=== PATIENT | female | born 1950 | race Caucasian/White ===

== ENCOUNTER 2018-12-18 08:25 | Inpatient (IN) ==
[2018-12-18] MEDS ORDERED: 0.9 % Sodium Chloride 1,000 ML IVC ONE (09:12)
--- NOTE | 2018-12-18 09:15 | Emergency Department Note ---
Disposition Clinical Impression: Cellulitis of right leg Disposition: Admitted As Inpatient Condition: Fair Referrals: Lionel Lord DO [Primary Care Provider] - Forms: ED Satisfaction Letter, Work/School Release Time of Disposition: 11:32 Fever HPI - General Chief Complaint: ED General Medical Stated Complaint: fever and weakness Time Seen by Provider: 12/18/18 09:07 Source: patient, family Mode of arrival: private vehicle Limitations: no limitations Nursing Notes Reviewed: Yes Vital Signs Reviewed: Yes - History of Present Illness Pt Subjective Complaint: fever Onset (ago): day(s) (Started yesterday) Maximum Temperature Reported: 101 F Time temperature last taken: 05:30 Temperature Source: oral Associated symptoms: Reports: denies other symptoms (Only complains of fever and feeling run down. No focal complaints.) Improves with: acetaminophen Worsens with: nothing Treatments prior to arrival fever: acetaminophen - Related Data Home Medications Medication Instructions Recorded Confirmed Amlodipine Besylate/Benazepril 1 cap PO DAILY 06/25/16 12/18/18 [Lotrel 5-40 mg Capsule] Atenolol [Tenormin] 25 mg PO DAILY 06/25/16 12/18/18 Atorvastatin Calcium [Lipitor] 20 mg PO DAILY 06/25/16 12/18/18 Cholecalciferol (Vitamin D3) 5,000 unit PO DAILY 06/25/16 12/18/18 [Dialyvite Vitamin D] Esomeprazole Magnesium [Nexium] 40 mg PO DAILY 06/25/16 12/18/18 Hydrocodone/Acetaminophen 1 each PO BID 06/25/16 12/18/18 [Hydrocodon-Acetaminophen 5-325] Insulin Glargine,Hum.rec.anlog 50 unit SQ DAILY 06/25/16 12/18/18 [Lantus Solostar] Pregabalin [Lyrica] 200 mg PO DAILY 06/25/16 12/18/18 SitaGLIPtin [Januvia] 100 mg PO DAILY 06/25/16 12/18/18 Venlafaxine XR (24 HR) [Effexor XR] 75 mg PO DAILY 06/25/16 12/18/18 Esomeprazole Magnesium [Nexium] 40 mg PO DAILY 12/18/18 12/18/18 Levothyroxine [Synthroid] 88 mcg PO DAILY 12/18/18 12/18/18 Metoprolol [Lopressor] 50 mg PO DAILY 12/18/18 12/18/18 SitaGLIPtin [Januvia] 100 mg PO DAILY 12/18/18 12/18/18 Allergies Allergy/AdvReac Type Severity Reaction Status Date / Time Iodinated Contrast- Oral and Allergy Anaphylaxis Verified 06/25/16 02:50 IV Dye All systems ED: reviewed and negative except as stated. Constitutional: Reports: fever, weakness. 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 Absent: scleral icterus, conjunctival injection - ENT ENT exam: normal exam, normal oropharynx, mucous membranes moist, TM's normal bilaterally, normal external ear exam - Neck Neck exam: Present: normal inspection, full ROM, trachea midline - Chest Chest inspection: Present: normal inspection, symmetric chest wall rise. Absent: tenderness - Respiratory Respiratory exam: Present: normal lung sounds bilaterally. Absent: respiratory distress, wheezes - Cardiovascular Cardiovascular exam: Present: regular rate, normal rhythm, normal heart sounds - Abdominal Exam Abdominal exam: Present: soft, Non-Tender, normal bowel sounds - Extremities Exam Extremities exam: Present: normal inspection. Absent: pedal edema - Neurological Exam Neurological exam: Present: alert, oriented X3 - Psychiatric Psychiatric exam: Present: normal affect, normal mood - Skin Skin exam: Present: warm, dry. Absent: rash Course Course Narrative: Patient presents with a fever. No focal complaints. No focal findings on examination. However she has a medical conditions including diabetes so we have to look carefully for the source of infection since no clear source is identified on exam. I will do a an infectious workup on the patient. Disposition will be based on diagnostic results and reevaluation. - Reevaluation(s) Reevaluation #1: White count shows 30,000 but the rest of the workup does not really show me a source of infection. However she did not need to be admitted to the hospital because of his elevated white count and weakness until we can see cultures and really know whether problem is. I talked with the hospitalist, Dr. Kessler, and he accepted the patient for admission. We will hold off on antibiotics until we find a source. Time: 11:10 Reevaluation #2: I went back into with the patient the family about the admission. Family dramatic tension to her right leg. There really was not much on the right leg when I did my initial examination but now looks like there is a cellulitis. There is some redness there and warm to the touch and a little bit tender. So perhaps this is a cellulitis. I went ahead and called Dr. Kessler back. We will start her on vancomycin and still admit her to the hospital for further evaluation. Time: 11:32 - Consultations Consultation #1: Dr. Kessler, hospitalist - I had 2 conversations with him and he is accepted patient for admission. Time: 11:32 Vital Signs Temperature 100.5 F H 12/18/18 08:29 Pulse Rate 91 12/18/18 08:29 Respiratory Rate 18 12/18/18 08:29 Blood Pressure 105/50 12/18/18 08:29 O2 Sat by Pulse Oximetry 95 12/18/18 08:29 Temperature 100.5 F H 12/18/18 08:29 Pulse Rate 75 12/18/18 11:02 Respiratory Rate 16 12/18/18 11:02 Blood Pressure 142/112 12/18/18 11:02 O2 Sat by Pulse Oximetry 98 12/18/18 11:02 Oxygen Delivery Oxygen Delivery Room Air Fever - Lab Data Lab results reviewed: Yes I reviewed the patient's lab results. Result diagrams: 12/18/18 09:59 12/18/18 09:59 Lab Results 12/18/18 12/18/18 12/18/18 Range/Units 09:59 09:59 09:59 WBC 30.4 H* (4.3-11.1) K/mcL RBC 4.06 (3.82-4.97) M/mcL Hgb 11.8 (11.5-15.4) g/dL Hct 36.5 (35.3-44.9) % MCV 89.9 (83.0-100.0) fL MCH 29.1 (28.0-33.3) pg MCHC 32.3 (31.6-35.5) g/dL RDW 15.4 H (11.5-14.5) % Plt Count 251 (140-400) K/mcL MPV 10.1 (9.4-12.4) fL Seg Neutrophils % 72.0 % Band Neutrophils % 20.0 H (0-4) % Lymphocytes % 2.0 % Monocytes % 4.0 % Blast Cells % 2.0 H (0) % Neutrophils # 28.0 H (1.6-8.9) K/mcL Lymphocytes # 0.6 (0.6-4.6) K/mcL Monocytes # 1.2 (0.0-1.3) K/mcL Toxic Granulation Present A (Not Present) Toxic Vacuolation Present A (Not Present) Platelet Estimate Normal (Normal) Sodium 135 L (136-145) mEq/L Potassium 4.4 (3.5-5.1) mEq/L Chloride 99 (98-107) mEq/L Carbon Dioxide 27 (23-29) mEq/L BUN 22 (8-23) mg/dL Creatinine 1.82 H (0.60-1.20) mg/dL Est GFR ( Amer) 33 L (> 60) Est GFR (Non-Af Amer) 28 L (> 60) BUN/Creatinine Ratio 12 (6-26) Glucose 128 H (70-105) mg/dL Calculated Osmolality 285 (280-300) Lactic Acid 1.2 (0.5-2.2) mmol/L Calcium 8.8 (8.6-10.3) mg/dL Urine Color (Yellow) Urine Clarity (Clear) Urine pH (5.0-8.0) pH Units Ur Specific [place] (1.010-1.025) Urine Protein (Neg-Trace) mg/dL Urine Glucose (UA) (Normal) mg/dL Urine Ketones (Negative) mg/dL Urine Blood (Negative) Urine Nitrite (Negative) Urine Bilirubin (Negative) Urine Urobilinogen (Normal) mg/dL Ur Leukocyte Esterase (Negative) Ur Culture Indicated? (NO) 12/18/18 Range/Units 10:28 WBC (4.3-11.1) K/mcL RBC (3.82-4.97) M/mcL Hgb (11.5-15.4) g/dL Hct (35.3-44.9) % MCV (83.0-100.0) fL MCH (28.0-33.3) pg MCHC (31.6-35.5) g/dL RDW (11.5-14.5) % Plt Count (140-400) K/mcL MPV (9.4-12.4) fL Seg Neutrophils % % Band Neutrophils % (0-4) % Lymphocytes % % Monocytes % % Blast Cells % (0) % Neutrophils # (1.6-8.9) K/mcL Lymphocytes # (0.6-4.6) K/mcL Monocytes # (0.0-1.3) K/mcL Toxic Granulation (Not Present) Toxic Vacuolation (Not Present) Platelet Estimate (Normal) Sodium (136-145) mEq/L Potassium (3.5-5.1) mEq/L Chloride (98-107) mEq/L Carbon Dioxide (23-29) mEq/L BUN (8-23) mg/dL Creatinine (0.60-1.20) mg/dL Est GFR ( Amer) (> 60) Est GFR (Non-Af Amer) (> 60) BUN/Creatinine Ratio (6-26) Glucose (70-105) mg/dL Calculated Osmolality (280-300) Lactic Acid (0.5-2.2) mmol/L Calcium (8.6-10.3) mg/dL Urine Color Yellow (Yellow) Urine Clarity Clear (Clear) Urine pH 5.5 (5.0-8.0) pH Units Ur Specific [place] 1.015 (1.010-1.025) Urine Protein Trace (Neg-Trace) mg/dL Urine Glucose (UA) Normal (Normal) mg/dL Urine Ketones Negative (Negative) mg/dL Urine Blood Negative (Negative) Urine Nitrite Negative (Negative) Urine Bilirubin Small H (Negative) Urine Urobilinogen Normal (Normal) mg/dL Ur Leukocyte Esterase Negative (Negative) Ur Culture Indicated? NO (NO)
[2018-12-18 10:21] LABS: Hematocrit 36.5 % (35.3-44.9); Hemoglobin 11.8 g/dL (11.5-15.4); Mean Corpuscular HGB Conc 32.3 g/dL (31.6-35.5); Mean Corpuscular Hemoglobin 29.1 pg (28.0-33.3); Mean Corpuscular Volume 89.9 fL (83.0-100.0); Mean Platelet Volume 10.1 fL (9.4-12.4); Platelet Count 251 K/mcL (140-400); Red Blood Count 4.06 M/mcL (3.82-4.97); Red Cell Distribution Width 15.4 % (11.5-14.5)
[2018-12-18 10:27] LABS: Calcium 8.8 mg/dL (8.6-10.3); Potassium 4.4 mEq/L (3.5-5.1)
[2018-12-18 10:36] LABS: Bilirubin,Urine Small (Negative); Blood,Urine Negative (Negative); Clarity,Urine Clear (Clear); Color,Urine Yellow (Yellow); Glucose,Urine (UA) Normal (Normal); Ketones,Urine Negative (Negative); Leukocyte Esterase,Urine Negative (Negative); Nitrite,Urine Negative (Negative); PH,Urine 5.5 pH Units (5.0-8.0); Protein,Urine Trace mg/dL (Neg-Trace); Specific Gravity,Urine 1.015 (1.010-1.025); Urobilinogen,Urine Normal (Normal)
[2018-12-18 10:42] LABS: Lymphocytes # 0.6 K/mcL (0.6-4.6); Monocytes # 1.2 K/mcL (0.0-1.3)
[2018-12-18 10:43] LABS: Platelet Estimate Normal (Normal); Toxic Granulation Present (Not Present); Toxic Vacuolation Present (Not Present)
[2018-12-18] MEDS ORDERED: 0.9 % Sodium Chloride 1,000 ML IVC SCH (12:40)
[2018-12-18] MEDS ORDERED: Naloxone 0.4 MG/ML INJ IVP PRN (12:40)
--- NOTE | 2018-12-18 14:48 | Internal Med History&Physical ---
Date of Encounter: 12/18/18 Time of Encounter: 14:15 Assessment and Plan (1) Cellulitis of right leg Current visit: Yes Status: Acute She has been started on IV vancomycin. Lactobacillus will be added. (2) Hypertension Current visit: Yes Status: Chronic Blood pressure was borderline low in emergency room. Continue metoprolol but withhold other blood pressure medications at this time. Qualifiers: Hypertension type: essential hypertension Qualified Code(s): I10 - Essential (primary) hypertension (3) DM type 2 (diabetes mellitus, type 2) Current visit: Yes Status: Chronic Check hemoglobin A1c in a.m. Continue Januvia and Lantus/Levemir. Accu-Cheks with SSI will be done. Qualifiers: Diabetes mellitus senior care insulin use: with exterminator helper use Diabetes mellitus complication status: with kidney complications Diabetes mellitus complication detail: with chronic kidney disease Chronic kidney disease stage: stage 3 (moderate) Qualified Code(s): E11.22 - Type 2 diabetes mellitus with diabetic chronic kidney disease; N18.3 - Chronic kidney disease, stage 3 (moderate); Z79.4 - jail (current) use of insulin (4) Hyperlipidemia Current visit: Yes Status: Chronic Continue Lipitor Qualifiers: Hyperlipidemia type: unspecified Qualified Code(s): E78.5 - Hyperlipidemia, unspecified (5) Hypothyroidism Current visit: Yes Status: Chronic Check TSH in a.m. Qualifiers: Hypothyroidism type: unspecified Qualified Code(s): E03.9 - Hypothyroidism, unspecified (6) Diabetic neuropathy Current visit: Yes Status: Chronic Continue Lyrica. Qualifiers: Diabetes mellitus type: type 2 Diabetes mellitus complication detail: diabetic polyneuropathy Qualified Code(s): E11.42 - Type 2 diabetes mellitus with diabetic polyneuropathy Internal Medicine - H&P: HPI Chief complaint: Fever, right leg redness Admitted From: Emergency Dept Plans for Post Hospital Care: Home History of present illness: Ms. Cabral is a 68 year old female who came to emergency room stating she developed fevers and chills with redness in her right lower leg onset day prior to admission. She reports her fever kenny to 102.5 F at home. She took Tylenol before she went to bed. When she awakened she did not feel improved so came to emergency room. Evaluation showed WBC elevated at 30.4 K with significant bandemia. She was admitted to [facility] floor for ongoing care needs. She denies previous episodes of cellulitis. She denies any injury or trauma to her right leg. She has Charcot joint of her right foot and has had surgical intervention on several occasions, most recently approximately 2011. She denies gout or other bone joint or muscle disorders. Past Med Surg Social Fam HX - Past Medical History Medical history: arthritis, diabetes, hyperlipidemia, hypertension, thyroid disease Psychiatric history: anxiety, depression - Past Surgical History Additional surgical history: right foot surgery, end of toe amputation. bilat knee replacement - Social History Smoking Status: Never smoker Smokeless Tobacco Status: No Alcohol use: none Drug use: none Internal Medicine - H&P: Meds Amlodipine Besylate/Benazepril [Lotrel 5-40 mg Capsule] 1 cap PO DAILY 06/25/16 [History] Atenolol [Tenormin] 25 mg PO DAILY 06/25/16 [History] Atorvastatin Calcium [Lipitor] 20 mg PO DAILY 06/25/16 [History] Cholecalciferol (Vitamin D3) [Dialyvite Vitamin D] 5,000 unit PO DAILY 06/25/16 [History] Esomeprazole Magnesium [Nexium] 40 mg PO DAILY 06/25/16 [History] Hydrocodone/Acetaminophen [Hydrocodon-Acetaminophen 5-325] 1 each PO BID 06/25/16 [History] Insulin Glargine,Hum.rec.anlog [Lantus Solostar] 50 unit SQ DAILY 06/25/16 [H istory] Pregabalin [Lyrica] 200 mg PO DAILY 06/25/16 [History] SitaGLIPtin [Januvia] 100 mg PO DAILY 06/25/16 [History] Venlafaxine XR (24 HR) [Effexor XR] 75 mg PO DAILY 06/25/16 [History] Esomeprazole Magnesium [Nexium] 40 mg PO DAILY 12/18/18 [History] Levothyroxine [Synthroid] 88 mcg PO DAILY 12/18/18 [History] Metoprolol [Lopressor] 50 mg PO DAILY 12/18/18 [History] SitaGLIPtin [Januvia] 100 mg PO DAILY 12/18/18 [History] Allergy/AdvReac Type Severity Reaction Status Date / Time Iodinated Contrast- Oral and Allergy Anaphylaxis Verified 06/25/16 02:50 IV Dye All Systems PM: A 10-system review of systems was performed and is negative for pertinent findings except as documented above in the HPI. Review of systems: Gen.: She states her weight has been stable for several months Cardiovascular: She has history of hypertension but denies AL heart failure angina DVT or pulmonary embolus Respiratory: She is a lifelong nonsmoker and denies chronic lung disease GI: She has GERD. She denies disorders of her liver gallbladder or exocrine pancreas : She has chronic kidney disease. She denies other kidney or bladder disorders. Neurologic: She has diabetic peripheral neuropathy. She denies large distribution strokes or seizures. Endocrine: She was diagnosed with DM 2 approximately 1989. She has hyperlipidemia and hypothyroidism. Hematology/oncology: She denies blood disorders cancers or anemia Psychiatric: She denies anxiety depression or other mental health diagnoses. She is uncertain why she takes Effexor. [place] skeletal: As per history of present illness - Constitutional Vitals: Temp Pulse Resp BP Pulse Ox 98.7 F 64 20 120/63 97 12/18/18 14:07 12/18/18 14:07 12/18/18 14:07 12/18/18 14:07 12/18/18 12:00 Exam: Gen.: She is a well-developed well-nourished female lying in bed who appears in no acute distress HEENT: Head is atraumatic and normocephalic. Eyes: EOMI. There is no scleral icterus. Mouth: Mucosa is moist. Neck: Supple and nontender. There is no thyromegaly or adenopathy noted. Heart: Regular without murmurs gallops or ectopics. Rate is approximately 112/m Lungs: No wheezes or crackles are heard. Abdomen: Soft and nontender. No masses or guarding are noted. Extremities: There is increased redness involving significant distribution of the right calf. The erythema has irregular borders. The right leg is much warmer to touch than the left. There is no pitting edema. No open ulcerative areas are seen. There is no cyanosis or clubbing noted. Dorsalis pedis and posterior tibial pulses are trace to 1+ palpable bilaterally. She has deformity of the right foot. Neurologic: Mental status: She is talkative and a good historian. She did not do simple money math correctly. She answered health history questions appropriately. Cranial nerves: Smile is symmetric. Forehead wrinkles bilaterally. Tongue protrudes midline. EOMI. Motor: There is no pronator drift. Cerebellar: Finger to nose is intact bilaterally. Skin: Warm and dry Internal Med - H&P Results - Labs CBC & Chem 7: 12/18/18 09:59 12/18/18 09:59 Labs: Short CBC 12/18/18 Range/Units 09:59 WBC 30.4 H* (4.3-11.1) K/mcL Hgb 11.8 (11.5-15.4) g/dL Hct 36.5 (35.3-44.9) % Plt Count 251 (140-400) K/mcL Neutrophils # 28.0 H (1.6-8.9) K/mcL BMP 12/18/18 09:59 Sodium 135 L Potassium 4.4 Chloride 99 Carbon Dioxide 27 BUN 22 Creatinine 1.82 H Glucose 128 H Calcium 8.8 Urine 12/18/18 Range/Units 10:28 Urine Color Yellow (Yellow) Urine Clarity Clear (Clear) Urine pH 5.5 (5.0-8.0) pH Units Ur Specific [place] 1.015 (1.010-1.025) Urine Protein Trace (Neg-Trace) mg/dL Urine Glucose (UA) Normal (Normal) mg/dL - Impressions ITS Impressions Chest X-Ray 12/18/18 09:12 IMPRESSION: No evidence of acute cardiopulmonary disease. D/ / Hector Rowan MD / Hector Rowan MD Interpreting Provider: Hector Rowan MD - VTE Reasons for not Prescribing Prophylaxis: Medical contraindication
[2018-12-18] MEDS: Acetaminophen 325 MG TABLET PO SCH ×2 (15:16→16:29)
[2018-12-18] MEDS ORDERED: Aminoglycoside Consult 1 EACH MC ONE (18:00)
[2018-12-18] MEDS: Piperacillin/Tazobactam 3.375 GM in 0.9 % Sodium Chloride Mini Bag 100 ML IVPB SCH (20:58)
[2018-12-18] MEDS: *HR* HYDROcodone/Acet 5/325 mg TABLET PO SCH (21:00)
[2018-12-18] MEDS ORDERED: Insulin DETEMIR 100 UNIT/ML per UNIT SQ ONE (21:03)
[2018-12-18] MEDS: Insulin DETEMIR 100 UNIT/ML X5UNITS SQ SCH (21:40)
[2018-12-19] MEDS: Acetaminophen 325 MG TABLET PO SCH ×4 (00:26→17:52)
[2018-12-19 05:34] LABS: Albumin 3.5 g/dL (3.5-5.7); Albumin/Globulin Ratio 1.1 (1.1-2.2); Bilirubin,Total 0.5 mg/dL (0.3-1.0); Calcium 8.5 mg/dL (8.6-10.3); Globulin 3.2 g/dL (2.4-3.5); Potassium 3.7 mEq/L (3.5-5.1); Total Protein 6.7 g/dL (6.4-8.9)
[2018-12-19 07:18] LABS: Hematocrit 35.8 % (35.3-44.9); Hemoglobin 11.7 g/dL (11.5-15.4); Mean Corpuscular HGB Conc 32.7 g/dL (31.6-35.5); Mean Corpuscular Hemoglobin 29.1 pg (28.0-33.3); Mean Corpuscular Volume 89.1 fL (83.0-100.0); Mean Platelet Volume 10.4 fL (9.4-12.4); Platelet Count 210 K/mcL (140-400); Red Blood Count 4.02 M/mcL (3.82-4.97); Red Cell Distribution Width 15.9 % (11.5-14.5)
[2018-12-19 07:22] LABS: Lymphocytes # 0.9 K/mcL (0.6-4.6); Monocytes # 1.2 K/mcL (0.0-1.3); Neutrophils # 21.5 K/mcL (1.6-8.9)
[2018-12-19 07:23] LABS: Platelet Estimate Normal (Normal); Toxic Granulation Present (Not Present)
[2018-12-19] MEDS: Piperacillin/Tazobactam 3.375 GM in 0.9 % Sodium Chloride Mini Bag 100 ML IVPB SCH ×3 (07:27→20:40)
[2018-12-19] MEDS ORDERED: BENAZEPRIL PO SCH (09:00)
[2018-12-19] MEDS ORDERED: Lisinopril 20 MG TABLET PO SCH (09:00)
[2018-12-19] MEDS ORDERED: [UNRECOGNIZED DRUG - OTHER] PO SCH (09:00)
[2018-12-19] MEDS ORDERED: AMLODIPINE BESYLATE PO SCH (09:00)
[2018-12-19] MEDS ORDERED: Pregabalin 50 MG CAPSULE PO SCH (09:00)
--- NOTE | 2018-12-19 09:34 | Internal Med Progress Note ---
Date of Encounter: 12/19/18 Time of Encounter: 09:25 - Assessment and plan (1) Cellulitis of right leg Current Visit: Yes Status: Acute Assessment and plan: December 19. Continue IV vancomycin and Zosyn. Lactobacillus will be added. (2) Hypertension Current Visit: Yes Status: Chronic Assessment and plan: December 19. Blood pressure stable. Continue metoprolol but remain off Lotrel and atenolol. Qualifiers: Hypertension type: essential hypertension Qualified Code(s): I10 - Es sential (primary) hypertension (3) DM type 2 (diabetes mellitus, type 2) Current Visit: Yes Status: Chronic Assessment and plan: December 19. Hemoglobin A1c pending. Continue Lantus/Levemir, Januvia, and Accu- Cheks with SSI. Qualifiers: Diabetes mellitus remote computer terminal operator insulin use: with remote computer terminal operator use Diabetes mellitus complication status: with kidney complications Diabetes mellitus complication detail: with chronic kidney disease Chronic kidney disease stage: stage 3 (moderate) Qualified Code(s): E11.22 - Type 2 diabetes mellitus with diabetic chronic kidney disease; N18.3 - Chronic kidney disease, stage 3 (moderate); Z79.4 - moth exterminator (current) use of insulin (4) Hyperlipidemia Current Visit: Yes Status: Chronic Assessment and plan: December 19. Continue Lipitor Qualifiers: Hyperlipidemia type: unspecified Qualified Code(s): E78.5 - Hyperlipidemia, unspecified (5) Hypothyroidism Current Visit: Yes Status: Chronic Assessment and plan: December 19. TSH normal at 0.845. Continue present dose Synthroid Qualifiers: Hypothyroidism type: unspecified Qualified Code(s): E03.9 - Hypothyroidism, unspecified (6) Diabetic neuropathy Current Visit: Yes Status: Chronic Assessment and plan: December 19. Continue Lyrica Qualifiers: Diabetes mellitus type: type 2 Diabetes mellitus complication detail: diabetic polyneuropathy Qualified Code(s): E11.42 - Type 2 diabetes mellitus with diabetic polyneuropathy - Subjective Interval history: December 19. No new problems have arisen. She has no new complaints. - Constitutional Vitals: Temp Pulse Resp BP Pulse Ox 99.2 F 95 16 114/64 95 12/19/18 07:23 12/19/18 07:23 12/19/18 07:23 12/19/18 07:23 12/19/18 07:23 Exam: She is resting comfortably in bed and appears in no acute distress. The intensity of the right leg erythema has lessened. There is been no significant expansion beyond borders documented yesterday. There is decreased warmth of the right leg compared to yesterday. Her affect is bright and cheerful. I reviewed her medications and lab results. Internal Medicine: Result - Labs CBC & Chem 7: 12/19/18 04:40 12/19/18 04:40 Labs: Short CBC 12/18/18 12/19/18 Range/Units 09:59 04:40 WBC 30.4 H* 23.6 H (4.3-11.1) K/mcL Hgb 11.8 11.7 (11.5-15.4) g/dL Hct 36.5 35.8 (35.3-44.9) % Plt Count 251 210 (140-400) K/mcL Neutrophils # 28.0 H 21.5 H (1.6-8.9) K/mcL BMP 12/18/18 12/19/18 09:59 04:40 Sodium 135 L 134 L Potassium 4.4 3.7 Chloride 99 100 Carbon Dioxide 27 26 BUN 22 24 H Creatinine 1.82 H 1.56 H Glucose 128 H 173 H Calcium 8.8 8.5 L Liver Function 12/19/18 Range/Units 04:40 Total Bilirubin 0.5 (0.3-1.0) mg/dL AST 16 (13-39) Units/L ALT 14 (7-52) Units/L Alkaline Phosphatase 63 (34-104) Units/L Albumin 3.5 (3.5-5.7) g/dL Urine 12/18/18 Range/Units 10:28 Urine Color Yellow (Yellow) Urine Clarity Clear (Clear) Urine pH 5.5 (5.0-8.0) pH Units Ur Specific [place] 1.015 (1.010-1.025) Urine Protein Trace (Neg-Trace) mg/dL Urine Glucose (UA) Normal (Normal) mg/dL - Impressions Impressions Chest X-Ray 12/18/18 09:12 IMPRESSION: No evidence of acute cardiopulmonary disease. D/ / Hector Rowan MD / Hector Rowan MD Interpreting Provider: Hector Rowan MD - VTE Reasons for not Prescribing Prophylaxis: Medical contraindication Consult Discharge Plan - Plan Referrals: Lionel Lord DO [Primary Care Provider] - 1 week
[2018-12-19] MEDS: *HR* SitaGLIPtin 25 MG TABLET PO SCH (09:45)
[2018-12-19] MEDS: Cholecalciferol (D-3) 1,000 UNIT TABLET PO SCH (09:47)
[2018-12-19] MEDS: Venlafaxine XR (24 HR) 37.5 MG CAP.ER.24H PO SCH (09:47)
[2018-12-19] MEDS: Metoprolol XL (24 HR) Succ 25 MG TAB.ER.24H PO SCH (09:47)
[2018-12-19] MEDS: *HR* HYDROcodone/Acet 5/325 mg TABLET PO SCH ×2 (09:48→20:40)
[2018-12-19 10:34] LABS: Estimated Average Glucose 134 mg/dl; Hemoglobin A1C 6.3 %
[2018-12-19] MEDS: amLODIPine 5 MG TABLET PO SCH (10:37)
[2018-12-19] MEDS: Insulin DETEMIR 100 UNIT/ML X5UNITS SQ SCH (20:42)
[2018-12-19] MEDS: Pregabalin 50 MG CAPSULE PO SCH (21:40)
[2018-12-20] MEDS: Acetaminophen 325 MG TABLET PO SCH ×4 (00:25→17:22)
[2018-12-20] MEDS: Piperacillin/Tazobactam 3.375 GM in 0.9 % Sodium Chloride Mini Bag 100 ML IVPB SCH ×3 (03:52→19:27)
[2018-12-20] MEDS: Cholecalciferol (D-3) 1,000 UNIT TABLET PO SCH (09:06)
[2018-12-20] MEDS: Pregabalin 50 MG CAPSULE PO SCH ×2 (09:06→20:41)
[2018-12-20] MEDS: Venlafaxine XR (24 HR) 37.5 MG CAP.ER.24H PO SCH (09:06)
[2018-12-20] MEDS: amLODIPine 5 MG TABLET PO SCH (09:07)
[2018-12-20] MEDS: Metoprolol XL (24 HR) Succ 25 MG TAB.ER.24H PO SCH (09:07)
[2018-12-20] MEDS: *HR* HYDROcodone/Acet 5/325 mg TABLET PO SCH ×2 (09:08→20:41)
[2018-12-20] MEDS: *HR* SitaGLIPtin 25 MG TABLET PO SCH (09:19)
[2018-12-20 10:13] LABS: Basophils % 0.2 %; Eosinophils # 0.3 K/mcL (0.0-0.6); Eosinophils % 1.6 %; Hemoglobin 10.8 g/dL (11.5-15.4); Immature Granulocytes % 0.4 % (0-4); Mean Corpuscular HGB Conc 32.7 g/dL (31.6-35.5); Mean Corpuscular Hemoglobin 29.2 pg (28.0-33.3); Mean Corpuscular Volume 89.2 fL (83.0-100.0); Mean Platelet Volume 10.9 fL (9.4-12.4); Monocytes # 0.7 K/mcL (0.0-1.3); Neutrophils # 14.6 K/mcL (1.6-8.9); Platelet Count 215 K/mcL (140-400); Red Cell Distribution Width 16.2 % (11.5-14.5); Segmented Neutrophils % 87.8 %
[2018-12-20 10:26] LABS: Calcium 8.5 mg/dL (8.6-10.3); Potassium 3.8 mEq/L (3.5-5.1)
--- NOTE | 2018-12-20 11:28 | Internal Med Progress Note ---
Date of Encounter: 12/20/18 Time of Encounter: 11:20 - Assessment and plan (1) Cellulitis of right leg Current Visit: Yes Status: Acute Assessment and plan: December 19. Continue IV vancomycin and Zosyn. Lactobacillus will be added. (2) Hypertension Current Visit: Yes Status: Chronic Assessment and plan: December 19. Blood pressure stable. Continue metoprolol but remain off Lotrel and atenolol. Qualifiers: Hypertension type: essential hypertension Qualified Code(s): I10 - Es sential (primary) hypertension (3) DM type 2 (diabetes mellitus, type 2) Current Visit: Yes Status: Chronic Assessment and plan: December 19. Hemoglobin A1c pending. Continue Lantus/Levemir, Januvia, and Accu- Cheks with SSI. December 20. Hemoglobin A1c acceptable at 6.3%. Continue present Rx. Qualifiers: Diabetes mellitus alf insulin use: with alf use Diabetes mellitus complication status: with kidney complications Diabetes mellitus complication detail: with chronic kidney disease Chronic kidney disease stage: stage 3 (moderate) Qualified Code(s): E11.22 - Type 2 diabetes mellitus with diabetic chronic kidney disease; N18.3 - Chronic kidney disease, stage 3 (moderate); Z79.4 - termite renewal inspector (current) use of insulin (4) Hyperlipidemia Current Visit: Yes Status: Chronic Assessment and plan: December 19. Continue Lipitor Qualifiers: Hyperlipidemia type: unspecified Qualified Code(s): E78.5 - Hyperlipidemia, unspecified (5) Hypothyroidism Current Visit: Yes Status: Chronic Assessment and plan: December 19. TSH normal at 0.845. Continue present dose Synthroid Qualifiers: Hypothyroidism type: unspecified Qualified Code(s): E03.9 - Hypothyroidism, unspecified (6) Diabetic neuropathy Current Visit: Yes Status: Chronic Assessment and plan: December 19. Continue Lyrica Qualifiers: Diabetes mellitus type: type 2 Diabetes mellitus complication detail: diabetic polyneuropathy Qualified Code(s): E11.42 - Type 2 diabetes mellitus with diabetic polyneuropathy (7) Acute renal failure Current Visit: Yes Status: Acute Assessment and plan: December 20. Creatinine has improved to 1.14. Discontinue IV fluids. Qualifiers: Acute renal failure type: unspecified Qualified Code(s): N17.9 - Acute kidney failure, unspecified (8) Anemia Current Visit: Yes Status: Acute Assessment and plan: December 20. Hemoglobin has decreased to 10.8. Check anemia testing and repeat CBC in a.m. Qualifiers: Anemia type: unspecified type Qualified Code(s): D64.9 - Anemia, unspecifi ed - Subjective Interval history: December 19. No new problems have arisen. She has no new complaints. December 20. She has no new complaints and feels better. - Constitutional Vitals: Temp Pulse Resp BP Pulse Ox 98.8 F 86 18 120/66 91 12/20/18 09:03 12/20/18 09:03 12/20/18 09:03 12/20/18 09:03 12/20/18 09:03 Exam: She is resting comfortably in bed and appears in no acute distress. Her affect is bright and cheerful. There is significant decrease in the erythema of the right lower leg. There is been no marginal extensions in size. She has 1-2+ edema of the right lower leg and trace edema of the left lower leg. I reviewed her medications and lab results. Internal Medicine: Result - Labs CBC & Chem 7: 12/20/18 05:20 12/20/18 05:20 Labs: Short CBC 12/20/18 Range/Units 05:20 WBC 16.6 H (4.3-11.1) K/mcL Hgb 10.8 L (11.5-15.4) g/dL Hct 33.0 L (35.3-44.9) % Plt Count 215 (140-400) K/mcL Neutrophils # 14.6 H (1.6-8.9) K/mcL BMP 12/20/18 05:20 Sodium 135 L Potassium 3.8 Chloride 103 Carbon Dioxide 23 BUN 17 Creatinine 1.14 Glucose 83 Calcium 8.5 L - VTE Reasons for not Prescribing Prophylaxis: Medical contraindication Consult Discharge Plan - Plan Referrals: Lionel Lord DO [Primary Care Provider] - 1 week
[2018-12-20] MEDS ORDERED: Insulin DETEMIR 100 UNIT/ML per UNIT SQ ONE (21:00)
[2018-12-21] MEDS: Piperacillin/Tazobactam 3.375 GM in 0.9 % Sodium Chloride Mini Bag 100 ML IVPB SCH (03:51)
[2018-12-21] MEDS: Acetaminophen 325 MG TABLET PO SCH ×2 (06:30)
[2018-12-21 07:13] LABS: Basophils % 0.3 %; Eosinophils # 0.4 K/mcL (0.0-0.6); Eosinophils % 3.6 %; Hematocrit 32.3 % (35.3-44.9); Hemoglobin 10.5 g/dL (11.5-15.4); Immature Granulocytes % 0.3 % (0-4); Lymphocytes # 0.9 K/mcL (0.6-4.6); Lymphocytes % 7.4 %; Mean Corpuscular HGB Conc 32.5 g/dL (31.6-35.5); Mean Corpuscular Hemoglobin 28.8 pg (28.0-33.3); Mean Corpuscular Volume 88.5 fL (83.0-100.0); Mean Platelet Volume 10.2 fL (9.4-12.4); Monocytes # 0.8 K/mcL (0.0-1.3); Neutrophils # 9.4 K/mcL (1.6-8.9); Platelet Count 230 K/mcL (140-400); Red Blood Count 3.65 M/mcL (3.82-4.97); Red Cell Distribution Width 16.2 % (11.5-14.5); Segmented Neutrophils % 81.4 %
[2018-12-21 08:18] LABS: BUN/Creatinine Ratio 13 (6-26); Blood Urea Nitrogen 14 mg/dL (8-23); Calcium 8.9 mg/dL (8.6-10.3); Carbon Dioxide 23 mEq/L (23-29); Chloride 105 mEq/L (98-107); Glucose 75 mg/dL (70-105); Osmolality,Calculated 285 (280-300); Potassium 3.9 mEq/L (3.5-5.1); Sodium 138 mEq/L (136-145); eGFR For Non-African Americans 52 (> 60)
[2018-12-21] MEDS: Cholecalciferol (D-3) 1,000 UNIT TABLET PO SCH (08:53)
[2018-12-21] MEDS: Metoprolol XL (24 HR) Succ 25 MG TAB.ER.24H PO SCH (08:54)
[2018-12-21] MEDS: *HR* HYDROcodone/Acet 5/325 mg TABLET PO SCH (08:54)
[2018-12-21] MEDS: Venlafaxine XR (24 HR) 37.5 MG CAP.ER.24H PO SCH (08:54)
[2018-12-21] MEDS: Pregabalin 50 MG CAPSULE PO SCH (08:55)
[2018-12-21] MEDS ORDERED: *HR* SitaGLIPtin 25 MG TABLET PO SCH (09:00)
[2018-12-21 10:11] LABS: Ferritin 140 ng/mL (10-120); Folate 21.6 ng/mL (3.0-16.0)
[2018-12-21 11:00] VITALS: BP 143/70
--- NOTE | 2018-12-21 11:27 | Discharge Summary ---
Orders not resulted at time of discharge: Pending orders 12/18/18 09:59 Culture,Blood [BC] Stat 12/21/18 06:36 Basic Metabolic Panel AM 0400 Ferritin AM 0400 Iron Profile AM 0400 Date of Encounter: 12/21/18 Time of Encounter: 11:15 - Discharge Diagnosis (1) Cellulitis of right leg Priority: Primary Status: Acute (2) Hypertension Priority: Secondary Status: Chronic Qualifiers: Hypertension type: essential hypertension Qualified Code(s): I10 - Essential (primary) hypertension (3) DM type 2 (diabetes mellitus, type 2) Priority: Secondary Status: Chronic Qualifiers: Diabetes mellitus nursing home insulin use: with nursing home use Diabetes mellitus complication status: with kidney complications Diabetes mellitus complication detail: with chronic kidney disease Chronic kidney disease stage: stage 3 (moderate) Qualified Code(s): E11.22 - Type 2 diabetes mellitus with diabetic chronic kidney disease; N18.3 - Chronic kidney disease, stage 3 (moderate); Z79.4 - termite exterminator helper (current) use of insulin (4) Hyperlipidemia Priority: Secondary Status: Chronic Qualifiers: Hyperlipidemia type: unspecified Qualified Code(s): E78.5 - Hyperlipidemia, unspecified (5) Hypothyroidism Priority: Secondary Status: Chronic Qualifiers: Hypothyroidism type: unspecified Qualified Code(s): E03.9 - Hypothyroidism, unspecified (6) Diabetic neuropathy Priority: Secondary Status: Chronic Qualifiers: Diabetes mellitus type: type 2 Diabetes mellitus complication detail: diabetic polyneuropathy Qualified Code(s): E11.42 - Type 2 diabetes mellitus with diabetic polyneuropathy (7) Acute renal failure Priority: Secondary Status: Acute Qualifiers: Acute renal failure type: unspecified Qualified Code(s): N17.9 - Acute kidney failure, unspecified (8) Anemia Priority: Secondary Status: Acute Qualifiers: Anemia type: unspecified type Qualified Code(s): D64.9 - Anemia, unspecified Hospital course: Ms. Cabral is a 68 year old female who came to emergency room stating she developed fevers and chills with redness in her right lower leg onset day prior to admission. She reports her fever kenny to 102.5 F at home. She took Tylenol before she went to bed. When she awakened she did not feel improved so came to emergency room. Evaluation showed WBC elevated at 30.4 K with significant bandemia. She was admitted to [facility] floor for ongoing care needs. Initial orders were written by emergency room physician. I saw her on December 18 and performed a history and physical. She was started on IV vancomycin and Zosyn for cellulitis. Lactobacillus was added. She had good clinical response with WBC decreasing to 11.6 by day of discharge. She spiked occasional temperature during her hospital course but trended increasingly toward normal. There was significant improvement in the erythema of the leg. She will continue with oral antibiotics and probiotic for 5 additional days at discharge. There was persistent edema of the right leg which I felt was due primarily to the inflammatory process. I told her she should keep her legs elevated while sitting at home. She will discuss with her PCP Dr. Lord about change from Lyrica to Cymbalta to lessen the edema. Lotrel and amlodipine were held on admission. Creatinine decreased to 1.05 with estimated GFR 52. She will remain off these at discharge. Metoprolol will be changed to Toprol-XL 50 mg daily. Hemoglobin gradually decreased to 10.5 on day of discharge. Anemia testing showed B12 1010, folate 21.6, and ferritin 140. Iron profile is pending at time of discharge. Her PCP can follow up on this and treat as needed. Hemoglobin A1c returned satisfactory at 6.3%. BN peptide returned slightly elevated at 2.09. Her PCP can monitor and prescribed treatment is needed. She will be discharged home and follow with her PCP Dr. Lord within 1 week. - Time Spent with Patient Total time spent providing and/or coordinating discharge services: - Discharge Medications Prescriptions: New Amoxicillin/Clavulanate [Augmentin] 875 mg PO BIDWM #10 tablet Lactobacillus [Culturelle] 1 each PO BID #10 cap.sprink Doxycycline 100 mg PO BID #10 capsule Metoprolol XL (24 HR) Succ [Toprol XL] 50 mg PO DAILY #30 tab.er.24h Continued Cholecalciferol (Vitamin D3) [Dialyvite Vitamin D] 5,000 unit PO DAILY Venlafaxine XR (24 HR) [Effexor XR] 75 mg PO DAILY SitaGLIPtin [Januvia] 100 mg PO DAILY Insulin Glargine,Hum.rec.anlog [Lantus Solostar] 50 unit SQ DAILY Pregabalin [Lyrica] 200 mg PO DAILY Hydrocodone/Acetaminophen [Hydrocodone-Acetamin 5-325 mg] 1 each PO BID Atorvastatin Calcium [Lipitor] 20 mg PO DAILY SitaGLIPtin [Januvia] 100 mg PO DAILY Levothyroxine [Synthroid] 88 mcg PO DAILY Changed Esomeprazole Magnesium [Nexium] 40 mg PO DAILY PRN #0 PRN Reason: Dyspepsia Esomeprazole Magnesium [Nexium] 40 mg PO DAILY PRN #0 PRN Reason: Dyspepsia Discontinued Atenolol [Tenormin] 25 mg PO DAILY Amlodipine Besylate/Benazepril [Lotrel 5-40 mg Capsule] 1 cap PO DAILY Metoprolol [Lopressor] 50 mg PO DAILY Home Medications: Atorvastatin Calcium [Lipitor] 20 mg PO DAILY 06/25/16 [History] Cholecalciferol (Vitamin D3) [Dialyvite Vitamin D] 5,000 unit PO DAILY 06/25/16 [History] Hydrocodone/Acetaminophen [Hydrocodone-Acetamin 5-325 mg] 1 each PO BID 06/25/16 [History] Insulin Glargine,Hum.rec.anlog [Lantus Solostar] 50 unit SQ DAILY 06/25/16 [History] Pregabalin [Lyrica] 200 mg PO DAILY 06/25/16 [History] SitaGLIPtin [Januvia] 100 mg PO DAILY 06/25/16 [History] Venlafaxine XR (24 HR) [Effexor XR] 75 mg PO DAILY 06/25/16 [History] Levothyroxine [Synthroid] 88 mcg PO DAILY 12/18/18 [History] SitaGLIPtin [Januvia] 100 mg PO DAILY 12/18/18 [History] Amoxicillin/Clavulanate [Augmentin] 875 mg PO BIDWM #10 tablet 12/21/18 [Rx] Doxycycline 100 mg PO BID #10 capsule 12/21/18 [Rx] Esomeprazole Magnesium [Nexium] 40 mg PO DAILY PRN #0 12/21/18 [Rx] Esomeprazole Magnesium [Nexium] 40 mg PO DAILY PRN #0 12/21/18 [Rx] Lactobacillus [Culturelle] 1 each PO BID #10 cap.sprink 12/21/18 [Rx] Metoprolol XL (24 HR) Succ [Toprol XL] 50 mg PO DAILY #30 tab.er.24h 12/21/18 [Rx] Allergies/Adverse Reactions: Allergy/AdvReac Type Severity Reaction Status Date / Time Iodinated Contrast- Oral and Allergy Anaphylaxis Verified 06/25/16 02:50 IV Dye Date of admission: 12/18/18 15:05 Primary care physician: Lionel Lord DO - Constitutional Vitals: Temp Pulse Resp BP Pulse Ox 98.8 F 70 20 143/70 94 12/21/18 10:57 12/21/18 10:57 12/21/18 10:57 12/21/18 10:57 12/21/18 10:57 - Patient Status Disposition: Home, Self-Care Condition: Fair - Discharge Instructions Follow Up With: Lionel Lord DO [Primary Care Provider] - 1 week - Diet and Activity Activity: resume usual activities as tolerated Diet: diabetic diet - VTE Reasons for not Prescribing Prophylaxis: Medical contraindication
[2018-12-21 11:46] LABS: % Iron Saturation 8 % (15-50); Iron 22 mcg/dL (50-170); Transferrin 201 mg/dL (203-362)
[2018-12-21] MEDS ORDERED: Insulin DETEMIR 100 UNIT/ML X5UNITS SQ SCH (21:00)
== END 2018-12-21 13:00 | disposition home or self-care (01) | DRG 603 ==
LOC: INPPIK 08:25 → EMEROOPIK 08:25 → INPPIK 12:40
PROVIDERS: ADMIT Internal Medicine; ATTEND Internal Medicine